=== PATIENT | female | born 1980 ===

== ENCOUNTER 2016-12-26 05:21 | Inpatient (IN) | payer MEDICAID ==
[2016-12-26 05:55] VITALS: BMI 29.2
[2016-12-26] MEDS ORDERED: cefOXitin IV 2 gm in Dextrose 50 ML IVPB ONE ×2 (05:57→07:25)
[2016-12-26] MEDS ORDERED: Sodium Citrate/Citric Acid 15 ml Sol PO ONE (05:57)
[2016-12-26 07:24] LABS: GFR AFRICAN-AMERICAN > 60; GLUCOSE,RANDOM 72 mg/dL (65-105)
[2016-12-26] MEDS ORDERED: Sodium Citrate/Citric Acid 15 ml Sol ONE (07:25)
[2016-12-26] MEDS ORDERED: Oxytocin 20 units in LR 2,000 ML IV ONE (07:26)
[2016-12-26 07:27] LABS: BASO % 0.4 % (0.0-2.0); EOS % 0.6 % (0.0-4.0); HEMATOCRIT 35.2 % (34.0-47.0); LYMPH # 1.4 K/uL (1.0-4.3); LYMPH % 18.5 % (20.0-40.0); MEAN CELL VOLUME 94.2 fL (81.0-99.0); MEAN CORPUSCULAR HEMOGLOBIN 31.4 pg (27.0-31.0); MEAN CORPUSCULAR HGB CONC 33.4 g/dL (33.0-37.0); MEAN PLATELET VOLUME 9.9 fL (7.2-11.7); MONO # 0.4 K/uL (0.0-0.8); MONO % 5.7 % (0.0-10.0); NRBC % 0.1 % (0.0-2.0); RED CELL DISTRIBUTION WIDTH 15.4 % (11.5-14.5); URINE BILIRUBIN NEGATIVE (NEGATIVE); URINE BLOOD NEGATIVE (NEGATIVE); URINE COLOR Straw (YELLOW); URINE GLUCOSE (UA) NORMAL (Normal); URINE KETONE NEGATIVE (NEGATIVE); URINE LEUKOCYTE ESTERASE NEG Leu/uL (Negative); URINE PROTEIN NEGATIVE (NEGATIVE); URINE UROBILINOGEN NORMAL mg/dL (0.2-1.0); WBC URINE < 1 /hpf (0-5); WHITE BLOOD COUNT 7.8 K/uL (4.8-10.8)
[2016-12-26] MEDS ORDERED: Morphine 1 mg/ml preservative-free Inj(Duramorph) ONE (07:55)
[2016-12-26] MEDS: Lactated Ringer's 1,000 ML IV SCH ×2 (08:00→22:08)
--- NOTE | 2016-12-26 08:04 | OBADHP ---
Datetime: 12/26/2016 07:43 IP Chief Complaint Other: Advanced maternal age; Previous section; Anemia Admit Comment, IP Provider: 36 yo , LMP unsure, NICOLETTE 12/31/16, EGA 39w 2d by sono 06/21/16 at 12 w 3d - scheduled repeat section with bilateral tubal ligation. (+) AFM; denies LOF, VB; occ Ctx. issues: [facility] - 1) advanced maternal age - declined amniocentesis. 2) anemia onp.o. med s; 3) multiparity, desires permanent sterilization - consent signed 10/27/16. P Ob: x 2000, female, 8lb, [place], no complications. 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 Denies STIs or abnormal Pap PMH: Acid reflux PSH: Age 29, tonsillectomy; D_C; C/S NKDA Meds: PNV, iron - each QD Soc Hx: denies tobacco, illiicit drug or EtOH use. With FOB x 14 years Fam Hx: Mother alive 68. Father alive 68 - both no med issues P.E.: as above. WD in NAD. Awake, alert, oriented to time, person and place. Pleasant and cooperat suzette. FOB present Assessment: 36 yo P2012, 39wk 2d prev C/S x 1 for elective repeat C/S with BTL. Reaffirmation perf ormed for permanent sterilization. Consents for surgery and blood transfusion also obatined after dis cussion of R/B/C. No questions offered; same signed, dated, witnessed and placed in chart. Patient la st ate 2000 hours. Category 1 tracing. Patient is clinically stable. 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 Pelvic Type - PN: Adequate Extremities - PN: Normal Abdomen - PN: Normal Back - PN: Normal Breast - PN: Not Done Lungs - PN: Normal Heart - PN: Normal Thyroid - PN: Not Done Neurologic - PN: Normal HEENT - PN: Normal General - PN: Normal FHR - Baseline A Provider: 145 Membranes, Provider: Intact Contraction Comments Provider: 6 Comments, ACOG Physical Exam: Skin: warm, dry, intact HEENT: full ROM Lungs: CTA bilaterally Cardiac: RRR, normal S1, S2 Abdomen: Gravid Soft. non tender. Healed Pfannenstiel scar. Fundal height 40cm : no masses or discharge Extremities: no calf tenderness, cyanosis or edema All other systems reviewed and are negative Gestation - Est Wks by US: 39w 2d IP Hx Assessment: The History has been Reviewed and is Current Vital Signs Provider: Reviewed IP Chief Complaint: Scheduled Section NICHD Variability Prov Fetus A: Moderate 6-25bpm NICHD Accel Fetus A IP Provider: 15X15 FHR Category Provider Fetus A: Category I NICHD Decel Fetus A IP Provider: None Dilatation, Provider: 1 Effacement, Provider: 0 Station, Provider: -3 Genitourinary Exam: Normal DTRs - PN: Not Done EGA AdmitDate IP: 39.6 IP Adm Impression: Term, intrauterine ; No Active Labor IP Admit Plan: Admit to unit; Initiate Section protocol
[2016-12-26] MEDS ORDERED: ePHEDrine 50 mg/ml Inj ONE (08:15)
[2016-12-26] MEDS ORDERED: Midazolam 2 MG/2 ML VIAL ONE (08:48)
--- NOTE | 2016-12-26 12:43 | PCM.SURG1 ---
Surgeon's Initial Post Op Note - Surgeon's Notes Surgeon: Daisy Bassett MD Animal Caretaker Supervisor: Clemente Farias MD. 2nd Animal Caretaker Supervisor: Delmi Ny MS-4 Type of Anesthesia: Spinal Anesthesia Administered By: Dr. Alberto Pre-Operative Diagnosis: Advanced maternal age; 39 weeks gestation; Previous section; Anemia; desires permanent sterilization. Operative Findings: Live male , weight 8lb 1oz; DAVID position; Apgars 9/9. Normal uterus; normal fallopian tubes and ovaries, bilaterally Post-Operative Diagnosis: Same; S/P repeat LTCS and bilateral tubal ligation Operation Performed: Repeat transverse lower uterine segment section; modified [place] procedure Specimen/Specimens Removed: Segment of right and left fallopian tubes Estimated Blood Loss: EBL {In ML}: 800 (U.O. 1,000 cc, clear. IVFs 2250 cc LR ) Blood Products Given: N/A Drains Used: No Drains Post-Op Condition: Good Date of Surgery/Procedure: 12/26/16 Time of Surgery/Procedure: 11:00
--- NOTE | 2016-12-26 13:29 | OBDS ---
DELIVERY PERSONNEL Delivery Doctor: Dwaine Bassett MD Scrub Nurse: Ethel Loyd Collection Systems Modeler: Yoni Verduzco RN Anesthesiologist: Toby Farr MD MATERNAL INFORMATION Delivery Anesthesia: Spinal Medications in Delivery: pit Estimated Blood Loss (ml): 800 Placenta Cultured: No Maternal Complications: None Provider Comments: Uncomplicated repeat lower transverse section performed with modified [place] procedure for permanent sterilization. Atraumatic delivery of live male , Apgars 9/9; heri ght 8lb 1oz, DAVID position. Patient tolerated procedure well. To PACU in stable condition. LABOR SUMMARY EDC: 12/27/2016 00:00 No. Babies in Womb: 1 Attempted: No Labor Anesthesia: None LABOR INFORMATION Other Ripening Agents: n/a Oxytocin: N/A Steroids Given: None Reason Steroids Not Administered: Not Applicable MEMBRANES Membranes Rupture Method: Artificial Rupture of Membranes: 12/26/2016 08:44 Length of Rupture (hrs): 0.00 Amniotic Fluid Color: Clear Amniotic Fluid Amount: Moderate Amniotic Fluid Odor: Normal STAGES OF LABOR Stage 3 hrs: 0 Stage 3 min: 1 CSECTION DELIVERY Primary Indication: Repeat Elective Secondary Indication: N/A Other Secondary Indication: Desires permanent sterilization CSection Urgency: Elective CSection Incidence: Repeat Labor: No Labor Elective: Elective CSection Incision: Lower Uterine Transverse Sterilization Procedure: [place] Uterine Closure: Double-layer closure BABY A INFORMATION Delivery Date/Time: 12/26/2016 08:44 Method of Delivery: Born in Route : No : N/A Forceps: N/A Vacuum Extraction: N/A Shoulder Dystocia : No SHOULDER DYSTOCIA BABY A Delivery Date/Time: 12/26/2016 08:44 PRESENTATION/POSITION BABY A Presentation: Cephalic Cephalic Presentation: Vertex Vertex Position: Right Occipital Anterior Breech Presentation: N/A PLACENTA INFORMATION BABY A Placenta Delivery Time : 12/26/2016 08:45 Placenta Method of Delivery: Manual Removal Placenta Status: Delivered SCORES BABY A Heart Rate 1 min: >100 bpm Resp Effort 1 min: Good Cry Reflex Irritability 1 min: Cough or Sneeze or Pulls Away Muscle Tone 1 min: Active Motion Color 1 min: Body [place], Extremities Blue SCORE 1 MIN: 9 Heart Rate 5 min: >100 bpm Resp Effort 5 min: Good Cry Reflex Irritability 5 min: Cough or Sneeze or Pulls Away Muscle Tone 5 min: Active Motion Color 5 min: Body [place], Extremities Blue SCORE 5 MIN: 9 INFORMATION BABY A Gestational Age at Delivery: 39.6 Gestational Status: Term Outcome : Liveborn Infant Condition : Stable Infant Sex: Male IDENTIFICATION/MEDS BABY A ID Band Number: [id number] ID Band Location: Left Leg; Left Arm Sensor Applied: Yes Sensor Number: [id number] Sensor Location : Cord Clamp Vitamin K Given : Not Given Erythromycin Given: Not Given WEIGHT/LENGTH BABY A Infant Birthweight (gms): 3655 Infant Weight (lb): 8 Weight (oz): 1 Length Inches: 20.00 Infant Length cms: 50.8 CORD INFORMATION BABY A No. Cord Vessels: 3 Nuchal Cord : N/A Cord Blood Taken: Yes Suction: Mouth; Nose ASSESSMENT BABY A Infant Complications: None Physical Findings at Delivery: Within Normal Limits Respirations: Appears Normal Deep Fat Fry Cook/ALS Called : Yes Care By: dr. aranda/charisma rn Transferred To: Remains with Mother
--- NOTE | 2016-12-26 14:55 | OP ---
PROCEDURE DATE: 12/26/2016 SURGEON: Daisy Bassett MD PLASTIC TOOL MAKER: Clemente Farias MD SECOND PLASTIC TOOL MAKER: Delmi Ny MS-4 ANESTHESIA: Spinal. ANESTHESIOLOGIST: Dr. Keturah Alberto PREOPERATIVE DIAGNOSES: A 39 weeks gestation, previous Caesarean section, multiparity, desiring permanent sterilization, advanced maternal age, with anemia. POSTOPERATIVE DIAGNOSES: A 39 weeks gestation, previous Caesarean section, multiparity, desiring permanent sterilization, advanced maternal age, with anemia, status post repeat low transverse Caesarean section and bilateral tubal ligation. OPERATIVE FINDINGS: Live male infant from the right occiput anterior position. Weight 8 pounds 1 ounce. Apgars 9 and 9 at 1 and 5 minutes, respectively. Normal uterus; normal fallopian tubes and ovaries, bilaterally. OPERATION PERFORMED: Repeat transverse lower uterine segment Caesarean section and a modified [place] procedure. SPECIMENS: Portion of right and left fallopian tubes. ESTIMATED BLOOD LOSS: 800 mL. URINARY OUTPUT: 1000 mL of clear urine. INTRAVENOUS FLUIDS: 2250 mL of lactated Ringer's. BLOOD PRODUCTS GIVEN: None. COMPLICATIONS: None. PROCEDURE: The patient was taken to the operating room after having obtained informed consent for the anticipated procedure. Consent was obtained in 2 forms : first, a reaffirmation of her desire for permanent sterilization, with the understanding of a risk of failure of about 1-3 per 1000. The patient was also counseled for risks, benefits and complications of repeat Caesarean section including, but not limited to, infection requiring antibiotics, hemorrhage requiring blood transfusion, repair of any damage to internal organs, possible Caesarean hysterectomy. The patient expressed an understanding. All her questions were answered. Consents were signed, dated, witnessed and placed in the chart. In LDR room 1, patient received Mefoxin 2 grams and she was then escorted to the operating room. Once in the operating room, on the operating room table in a sitting position, spinal anesthesia was administered without incident. She was immediately positioned in the supine position. Auscultation of heart rate was at 140 beats per minute. A Valerio catheter was then placed under sterile conditions. The patient's abdomen was prepped and she was subsequently draped in the usual sterile fashion. After assuring an adequate level of anesthesia, using the first scalpel, a Pfannenstiel incision was made on the skin just inferior to the previous scar. The incision was carried down through the subcutaneous tissue using the Bovie electrocautery. The fascia was identified. It was nicked in the midline and the incision was extended bilaterally also using the Bovie electrocautery. The rectus muscle was then dissected off the overlying fascia and the peritoneum was entered via blunt dissection. The vesicouterine reflection was identified and the bladder flap was created. A transverse incision was then made on the lower uterine segment. Amniotomy was performed and a copious amount of clear fluid was noted. Atraumatic delivery of a live male infant, findings as above, ensued without incident. Once on the operative field, the 's mouth and nose were bulb suctioned as the umbilical cord was doubly clamped and cut. The was then handed off the operative field to the pediatricians in attendance. The placenta was delivered manually. It was grossly intact with 3 vessels present in the cord. The uterus was exteriorized for closure. This was done in 2 layers using 1-0 Vicryl. The first layer was in a running interlocking fashion and the second layer was in a horizontal imbricating fashion. Additional hemostatic sutures were needed on the lower uterine segment. This was with O Biosyn 0 in a running interlocking fashion. Attention was then directed to the pelvic viscera, which were grossly normal as reported above. Using a Piyush clamp, the right fallopian tube was grasped in the midisthmic portion that was relatively avascular. A knuckle was created using plain catgut in 2 ties. The intervening mesosalpinx was pierced and the portion of the fallopian tube was resected and submitted to pathology for confirmation. Hemostasis was assured on the ligated ends. A similar procedure was performed on the left fallopian tube. Attention was then directed to the posterior aspect of the uterus. Copious irrigation was performed. The bladder flap was reapproximated using 2-0 chromic in a running fashion. The uterus was returned to the abdominal cavity. The paracolic gutters were cleared of all debris. After assuring adequate hemostasis, the parietal peritoneum was reapproximated using 2-0 chromic in a running fashion. And the rectus muscle was reapproximated in the midline using 3-0 chromic in a running fashion. The fascia was reapproximated using 1-0 Vicryl in a running fashion in a single suture and the subcutaneous tissue was reapproximated using O plain catgut in a running fashion. The skin was reapproximated using surgical clips. Bimanual examination was performed and the uterus was evacuated of clots. It was contracted and firm, noted to be about 2 fingerbreadths below the umbilicus. A pressure dressing was applied. The patient tolerated the procedure well. She was transferred to the PACU in stable condition. Infant had been transferred to the well-baby nursery, also in stable condition. Dr. Farias was present throughout the entire procedure as a certified ophthalmic surgical assistant. His presence was necessary for: 1. Adequate visualization of the operative field at all times. 2. Applying sufficient fundal pressure for the safe and atraumatic delivery of the infant. 3. Assuring adequate hemostasis throughout the procedure. Daisy A Serjio COOK cc: [id number] TT: 12/26/2016 14:55:15 en MTDD
[2016-12-26] MEDS: Simethicone 80 mg Chewtab PO SCH (22:09)
[2016-12-27] MEDS: Oxycodone/Acetaminophen 5/325 mg Tab PO PRN ×3 (05:17→16:25)
[2016-12-27] MEDS: Lactated Ringer's 1,000 ML IV SCH (06:00)
[2016-12-27 08:01] LABS: BASO % 0.2 % (0.0-2.0); EOS % 0.3 % (0.0-4.0); HEMATOCRIT 30.2 % (34.0-47.0); LYMPH # 1.1 K/uL (1.0-4.3); LYMPH % 8.8 % (20.0-40.0); MEAN CELL VOLUME 93.8 fL (81.0-99.0); MEAN CORPUSCULAR HEMOGLOBIN 31.4 pg (27.0-31.0); MEAN CORPUSCULAR HGB CONC 33.4 g/dL (33.0-37.0); MEAN PLATELET VOLUME 9.4 fL (7.2-11.7); MONO # 0.6 K/uL (0.0-0.8); PLATELET COUNT 152 K/uL (130-400); RED CELL DISTRIBUTION WIDTH 16.2 % (11.5-14.5); WHITE BLOOD COUNT 12.4 K/uL (4.8-10.8)
[2016-12-27 08:58] LABS: NEUTROPHIL 78 % (50-75); TOTAL CELLS COUNTED 100
--- NOTE | 2016-12-27 09:08 | OBPPN ---
Datetime: 12/27/2016 09:06 PP Pain Prov: Within normal limits PP Nausea Prov: Denies PP Flatus Prov: Yes PP BM Prov: No PP Breasts Prov: Normal PP Heart Prov: Normal PP Lungs Prov: Normal PP Abdomen/Uterus Prov: Normal PP Lochia Prov: Normal PP Vulva/Perineum Prov: Normal PP CVA Tenderness Prov: Normal PP Extremities Prov: Normal PP C/S Incision Prov: Normal PP Progress Prov: Normal PP Impression Prov: Normal progression PP Plan Prov: Continue present management PP Progress Note Prov: S-patient reports that he rpain is well controlled.denies nausea, vomiting, h eadache, chest pain, shortness of breath, numbness or tingling in hands and feet O-VSS Afebrile Fundus firm and below umbilcius dressing clean dry and intact extremities no calf tenderness A/P Patient s/p csection pod 1 doing well -continue roitine post op care -advance diet -monitor closely Vital Signs Provider PP: Reviewed; Within Normal Limits
[2016-12-27] MEDS: Prenatal Multivit/Folic Acid/Iron Tab PO SCH (09:47)
[2016-12-27] MEDS: Simethicone 80 mg Chewtab PO SCH ×4 (09:47→22:13)
--- NOTE | 2016-12-28 07:27 | OBPPN ---
Datetime: 12/28/2016 07:25 PP Pain Prov: Within normal limits PP Nausea Prov: Denies PP Flatus Prov: Yes PP Abdomen/Uterus Prov: Normal PP Lochia Prov: Normal PP Extremities Prov: Normal PP C/S Incision Prov: Normal PP Comments Phys Exam Prov: fudus below umblicus ext no edema,no calf ten incision clean and dry PP Impression Prov: Normal progression PP Plan Prov: Continue present management PP Progress Note Prov: pt was seen at bed side, pain under control, no n/v, tolerating deit, voiding ,min lochia, flatus+ pod#2 s/p c/s cont post care cont pain management encourage ambulation Vital Signs Provider PP: Reviewed; Within Normal Limits
[2016-12-28] MEDS: Prenatal Multivit/Folic Acid/Iron Tab PO SCH (10:37)
[2016-12-28] MEDS: Simethicone 80 mg Chewtab PO SCH ×4 (10:37→22:45)
[2016-12-28 16:51] VITALS: O2SAT 99
[2016-12-29 07:59] VITALS: BP 105/72; PULSE 85; RESP 18; TEMP 98.6
--- NOTE | 2016-12-29 08:59 | OBPPN ---
Datetime: 12/29/2016 08:55 PP Pain Prov: Within normal limits PP Nausea Prov: Denies PP Flatus Prov: Yes PP BM Prov: Yes PP Breasts Prov: Normal PP Heart Prov: Normal PP Lungs Prov: Normal PP Abdomen/Uterus Prov: Normal PP Lochia Prov: Normal PP Vulva/Perineum Prov: Normal PP CVA Tenderness Prov: Normal PP Extremities Prov: Normal PP C/S Incision Prov: Normal PP Progress Prov: Normal PP Comments Phys Exam Prov: Abdomen soft, non-tender. Incision C/D/I. Good bowel soungs PP Impression Prov: Normal progression PP Plan Prov: Discharge PP Progress Note Prov: Stable. Discharge home. Clinic follow up 1 week. IP PP Procedures: None Vital Signs Provider PP: Reviewed; Within Normal Limits Vital Signs Provider Details PP: HgB 10.1
--- NOTE | 2016-12-29 09:01 | OBDCSUM ---
Datetime: 12/29/2016 08:56 Discharged to, Provider: Home Follow up at, Provider: GILLIAN Disch Instr Activity: Normal activity; May Shower Disch Instr Diet: Restricted, specify Discharge Diet restrict Prov: none Discharge Diagnosis, Provider: Term Delivered Discharge Time: 12/29/2016 08:59 Disch Referrals: None Contraception discussed, Prov: Yes Disch Activity Restrictions: No exercising; No lifting; No driving; Minimize walking; Minimize stair -climbing; No sexual activity; Nothing in vagina - [place], tampons, douche Discharge Comment, Provider: Repeat Delivery with BTL, uncomplicated. Discharge Diagnosis Prov Other: Repeat LTC/S Contraception after Delivery: Tubal Ligation
[2016-12-29] MEDS ORDERED: Influenza Virus Vaccine 45 mcg/0.5 ml Syr IM ONE (09:12)
[2016-12-29] MEDS: Simethicone 80 mg Chewtab PO SCH (10:15)
[2016-12-29] MEDS: Prenatal Multivit/Folic Acid/Iron Tab PO SCH (10:15)
== END 2016-12-29 11:30 | disposition home or self-care (01) ==
LOC: C.4D 05:21 → C.4M 12:25
PROVIDERS: ADMIT Obstetrics & Gynecology; ATTEND Obstetrics & Gynecology
PROC: 10D00Z1 Extraction of Products of Conception, Low, Open Approach (ICD-10-PCS; principal; 2016-12-26)
PROC: 0UT70ZZ Resection of Bilateral Fallopian Tubes, Open Approach (ICD-10-PCS; 2016-12-26)
DX: O34.211 Maternal care for low transverse scar from previous cesarean delivery (principal); D64.9 Anemia, unspecified; O99.013 Anemia complicating pregnancy, third trimester; Z37.0 Single live birth; O09.523 Supervision of elderly multigravida, third trimester; Z3A.39 39 weeks gestation of pregnancy; Z30.2 Encounter for sterilization

== ENCOUNTER 2018-01-14 18:36 | Emergency (ER) | payer SELFPAY ==
[2018-01-14 18:37] VITALS: BMI 29.2
[2018-01-14 18:55] VITALS: RESP 20; O2SAT 100
[2018-01-14] MEDS ORDERED: Aluminum Hydroxide/Magnesium Hydroxide Susp (30 mL) PO STA (19:24)
[2018-01-14] MEDS ORDERED: Belladonna-Phenobarbital PO STA (19:25)
--- NOTE | 2018-01-14 19:26 | C.PDOC ---
History Of Present Illness 37 year old female with PMhx of GERD presents to the ED c/o abdominal pain associated with nausea for the past week. Patient she has had similar pain in the past but now its worse. Patient also c/o constipation, burning sensation while urinating. Patient denies fever, chills, vomit, diarrhea, CP, SOB. Chief Complaint (Nursing): Abdominal Pain History Per: Patient History/Exam Limitations: no limitations Onset/Duration Of Symptoms: Days Current Symptoms Are (Timing): Still Present Location Of Pain/Discomfort: Diffuse Radiation Of Pain To:: Back Quality Of Discomfort: "Pain" Associated Symptoms: Nausea, Constipation, Urinary Symptoms Last Bowel Movement: Today Recent travel outside of the [place]: No Additional History Per: Patient Abnormal Vaginal Bleeding: No Past Medical History Reviewed: Historical Data, Nursing Documentation, Vital Signs Vital Signs: Last Vital Signs Temp 98.2 F 01/14/18 20:58 Pulse 67 01/14/18 20:58 Resp 20 01/14/18 20:58 BP 105/70 01/14/18 20:58 Pulse Ox 100 01/14/18 21:43 - Medical History PMH: GERD Surgical History: Tonsillectomy - [facility] Procedures EXTRACTION OF POC, LOW CERVICAL, OPEN APPROACH (12/26/16) RESECTION OF BILATERAL FALLOPIAN TUBES, OPEN APPROACH (12/26/16) Family History: States: Unknown Family Hx - Social History Hx Tobacco Use: No Hx Alcohol Use: No Hx Substance Use: No - Immunization History Hx Tetanus Toxoid Vaccination: No Hx Influenza Vaccination: No Hx Pneumococcal Vaccination: No Review Of Systems Constitutional: Negative for: Fever, Chills Cardiovascular: Negative for: Chest Pain Respiratory: Negative for: Shortness of Breath Gastrointestinal: Positive for: Nausea, Abdominal Pain, Constipation Genitourinary: Positive for: Dysuria Musculoskeletal: Positive for: Back Pain Skin: Negative for: Rash Neurological: Negative for: Headache, Dizziness Physical Exam - Physical Exam Appears: Non-toxic, No Acute Distress Skin: Normal Color, Warm, Dry Head: Atraumatic, Normacephalic Eye(s): bilateral: Normal Inspection Nose: No Discharge Oral Mucosa: Moist Throat: Normal, No Erythema, No Exudate Neck: Normal ROM, Supple Chest: Symmetrical Cardiovascular: Rhythm Regular, No Murmur Respiratory: Normal Breath Sounds, No Rales, No Rhonchi, No Wheezing Gastrointestinal/Abdominal: Bowel Sounds (active), Soft, Tenderness (mild LUQ, lower abdominal), No Guarding, No Rebound Extremity: Normal ROM, No Tenderness, No Swelling Pulses: Left Dorsalis Pedis: Normal, Right Dorsalis Pedis: Normal Neurological/Psych: Oriented x3, Normal Motor, Normal Sensation Gait: Steady ED Course And Treatment - Laboratory Results Result Diagrams: 01/14/18 19:35 01/14/18 19:35 O2 Sat by Pulse Oximetry: 100 (ON RA) Pulse Ox Interpretation: Normal Medical Decision Making Medical Decision Making: Impression: abdominal pain Plan: * Labs * Maalox 30 ml PO * Zofran 4 mg IVP * Lidocaine 2% 15 ml PO * 1 tab PO * UA On reassessment, patient is resting comfortably, and is in no acute distress. Patient was instructed to follow up with physician/clinic in 1-2 days for further evaluation. Disposition - Disposition Referrals: [facility] at [facility] [Outside] Disposition: HOME/ ROUTINE Disposition Time: 22:35 Condition: FAIR Prescriptions: Pantoprazole [Protonix] 40 mg PO DAILY #14 ect Instructions: Acid Reflux (Gastroesophageal Reflux Disease), Adult (DC), Acute Abdomen (Belly Pain) Forms: Gen Discharge Inst Libyan, [employer] [place] [employer] (Swiss) Print Language: BURMESE - Clinical Impression Clinical Impression: Abdominal pain - Scribe Statement The provider has reviewed the documentation as recorded by the Scribe Andrew Andrade All medical record entries made by the Scribe were at my direction and personally dictated by me. I have reviewed the chart and agree that the record accurately reflects my personal performance of the history, physical exam, medical decision making, and the department course for this patient. I have also personally directed, reviewed, and agree with the discharge instructions and disposition.
[2018-01-14] MEDS ORDERED: Belladonna-Phenobarbital ONE (19:42)
[2018-01-14 19:43] LABS: BASO # 0.1 K/uL (0.0-0.2); BASO % 0.8 % (0.0-2.0); EOS # 0.1 K/uL (0.0-0.7); EOS % 2.2 % (0.0-4.0); LYMPH # 2.1 K/uL (1.0-4.3); LYMPH % 32.3 % (20.0-40.0); MEAN CORPUSCULAR HEMOGLOBIN 31.3 pg (27.0-31.0); MEAN CORPUSCULAR HGB CONC 33.8 g/dL (33.0-37.0); MEAN PLATELET VOLUME 9.4 fL (7.2-11.7); MONO # 0.6 K/uL (0.0-0.8); MONO % 8.5 % (0.0-10.0); NEUT # 3.7 K/uL (1.8-7.0); NEUT % 56.2 % (50.0-75.0); RBC 3.87 Mil/uL (3.80-5.20); RED CELL DISTRIBUTION WIDTH 13.6 % (11.5-14.5); WHITE BLOOD COUNT 6.5 K/uL (4.8-10.8)
[2018-01-14] MEDS ORDERED: Aluminum Hydroxide/Magnesium Hydroxide Susp (30 mL) ONE (19:43)
[2018-01-14 19:44] LABS: HEMOGLOBIN 12.1 g/dL (11.0-16.0); MEAN CELL VOLUME 92.7 fL (81.0-99.0)
[2018-01-14 19:52] LABS: ALB/GLOB RATIO 1.2 (1.0-2.1); ALT/SGPT 21 U/L (9-52); AST/SGOT 28 U/L (14-36); BLOOD UREA NITROGEN 12 mg/dL (7-17); CALCIUM 8.7 mg/dl (8.6-10.4); GFR AFRICAN-AMERICAN > 60; GFR NON-AFRICAN AMERICAN > 60; LIPASE 145 U/L (23-300)
[2018-01-14 20:54] LABS: HCG,QUALITATIVE URINE NEGATIVE (NEGATIVE)
[2018-01-14 20:59] VITALS: BP 105/70; PULSE 67; TEMP 98.2
[2018-01-14 20:59] LABS: SQUAMOUS EPITHIAL 2 /hpf (0-5); URINE BILIRUBIN NEGATIVE (NEGATIVE); URINE BLOOD NEGATIVE (NEGATIVE); URINE CLARITY Clear (Clear); URINE COLOR Yellow (YELLOW); URINE GLUCOSE (UA) NORMAL (Normal); URINE LEUKOCYTE ESTERASE NEG Leu/uL (Negative); URINE PROTEIN NEGATIVE (NEGATIVE); URINE UROBILINOGEN NORMAL mg/dL (0.2-1.0)
== END 2018-01-14 20:58 | disposition home or self-care (01) ==
LOC: C.ER 18:36
DX: R10.9 Unspecified abdominal pain (principal); K21.9 Gastro-esophageal reflux disease without esophagitis
CPT/HCPCS: 80053; 81001; 83690; 84703; 85025; 96374; 99284; J2405

== ENCOUNTER 2018-05-04 22:02 | Emergency (ER) | payer SELFPAY ==
[2018-05-04 22:02] VITALS: BMI 29.2
[2018-05-04 22:35] VITALS: BP 113/73; PULSE 70; TEMP 97.8; O2SAT 100
[2018-05-04 22:43] LABS: SQUAMOUS EPITHIAL 7 /hpf (0-5); URINE BACTERIA OCC (<OCC); URINE BILIRUBIN NEGATIVE (NEGATIVE); URINE BLOOD NEGATIVE (NEGATIVE); URINE CLARITY Clear (Clear); URINE COLOR Yellow (YELLOW); URINE GLUCOSE (UA) NORMAL (Normal); URINE LEUKOCYTE ESTERASE 1+ Leu/uL (Negative); URINE PROTEIN NEGATIVE (NEGATIVE); URINE UROBILINOGEN NORMAL mg/dL (0.2-1.0)
--- NOTE | 2018-05-04 23:16 | C.PDOC ---
History Of Present Illness 37 year old female presents to the ER with a complaint of dysuria for the past 6 days, associated with back pain and chills. Denies fever. Time Seen by Provider: 05/04/18 22:58 Chief Complaint (Nursing): Female Genitourinary History Per: Patient History/Exam Limitations: no limitations Current Symptoms Are (Timing): Still Present Quality Of Discomfort: Burning Associated Symptoms: Chills, Back Pain, Urinary Symptoms (Dysuria). denies: Fever Alleviating Factors: None Recent travel outside of the [place]: No Abnormal Vaginal Bleeding: No Past Medical History Reviewed: Historical Data, Nursing Documentation, Vital Signs Vital Signs: Last Vital Signs Temp 97.8 F 05/04/18 22:33 Pulse 70 05/04/18 22:33 Resp 20 05/04/18 23:25 BP 113/73 05/04/18 22:33 Pulse Ox 100 05/04/18 23:16 - Medical History PMH: GERD Surgical History: Tonsillectomy - [facility] Procedures EXTRACTION OF POC, LOW CERVICAL, OPEN APPROACH (12/26/16) RESECTION OF BILATERAL FALLOPIAN TUBES, OPEN APPROACH (12/26/16) Family History: States: Unknown Family Hx - Social History Hx Tobacco Use: No Hx Alcohol Use: No Hx Substance Use: No - Immunization History Hx Tetanus Toxoid Vaccination: No Hx Influenza Vaccination: No Hx Pneumococcal Vaccination: No Review Of Systems Constitutional: Positive for: Chills. Negative for: Fever Gastrointestinal: Negative for: Nausea, Vomiting, Abdominal Pain Genitourinary: Positive for: Dysuria Musculoskeletal: Positive for: Back Pain Physical Exam - Physical Exam Appears: Non-toxic Skin: Normal Color, Warm, Dry Head: Atraumatic, Normacephalic Eye(s): bilateral: Normal Inspection Oral Mucosa: Moist Chest: Symmetrical, No Tenderness Cardiovascular: Rhythm Regular Respiratory: Normal Breath Sounds, No Rales, No Rhonchi, No Wheezing Gastrointestinal/Abdominal: Soft, No Tenderness Back: No CVA Tenderness Neurological/Psych: Oriented x3, Normal Speech Gait: Steady ED Course And Treatment O2 Sat by Pulse Oximetry: 100 (Room air) Pulse Ox Interpretation: Normal Medical Decision Making Medical Decision Making: Urinalysis was positive for UTI, will discharge home on cipro and pyridium, patient advised to follow up with PMD for further evaluation or return if symptoms worsen. Disposition - Disposition Referrals: [facility] at [facility] [Outside] Disposition: HOME/ ROUTINE Disposition Time: 23:14 Condition: FAIR Additional Instructions: Follow up with the medical doctor/clinic within 1-2 days. Return if worsened. Prescriptions: Ciprofloxacin [Cipro] 1 tab PO BID #14 tab Phenazopyridine HCl [Pyridium] 200 mg PO TID #10 tablet Instructions: Urinary Tract Infections in Adults Forms: [employer] (Wolof) - Clinical Impression Clinical Impression: UTI (urinary tract infection) during - PA / AUTOMATIC RIVETING MACHINE OPERATOR / Resident Statement MD/DO has reviewed & agrees with the documentation as recorded. - Scribe Statement The provider has reviewed the documentation as recorded by the Scribe Landon Jackson All medical record entries made by the Heshamibtanesha were at my direction and personally dictated by me. I have reviewed the chart and agree that the record accurately reflects my personal performance of the history, physical exam, medical decision making, and the department course for this patient. I have also personally directed, reviewed, and agree with the discharge instructions and disposition.
[2018-05-04 23:25] VITALS: RESP 20
== END 2018-05-04 23:25 | disposition home or self-care (01) ==
LOC: C.ER 22:02
DX: O23.40 Unspecified infection of urinary tract in pregnancy, unspecified trimester (principal); Z3A.00 Weeks of gestation of pregnancy not specified

== ENCOUNTER 2018-06-26 07:09 | Emergency (ER) | payer OTHER ==
[2018-06-26 07:09] VITALS: BMI 29.2
[2018-06-26 07:24] VITALS: TEMP 98.1
[2018-06-26] MEDS ORDERED: DiphenhydrAMINE 50 mg/ml Inj IVP STA (08:20)
[2018-06-26] MEDS ORDERED: Sodium Chloride 0.9% 1,000 ML IV ONE (08:20)
[2018-06-26 08:21] LABS: SQUAMOUS EPITHIAL 1 /hpf (0-5); URINE BACTERIA RARE (<OCC); URINE BILIRUBIN NEGATIVE (NEGATIVE); URINE BLOOD NEGATIVE (NEGATIVE); URINE CLARITY Clear (Clear); URINE COLOR Yellow (YELLOW); URINE GLUCOSE (UA) NORMAL (Normal); URINE LEUKOCYTE ESTERASE NEG Leu/uL (Negative); URINE PROTEIN NEGATIVE (NEGATIVE); URINE UROBILINOGEN NORMAL mg/dL (0.2-1.0)
[2018-06-26 08:50] LABS: BASO % 0.7 % (0.0-2.0); EOS % 1.4 % (0.0-4.0); HEMOGLOBIN 12.1 g/dL (11.0-16.0); LYMPH # 1.3 K/uL (1.0-4.3); LYMPH % 34.5 % (20.0-40.0); MEAN CELL VOLUME 91.3 fL (81.0-99.0); MEAN CORPUSCULAR HEMOGLOBIN 30.4 pg (27.0-31.0); MEAN CORPUSCULAR HGB CONC 33.3 g/dL (33.0-37.0); MEAN PLATELET VOLUME 9.4 fL (7.2-11.7); MONO # 0.4 K/uL (0.0-0.8); MONO % 10.7 % (0.0-10.0); NEUT # 1.9 K/uL (1.8-7.0); NEUT % 52.7 % (50.0-75.0); NRBC % 0.1 % (0.0-2.0); RBC 3.98 Mil/uL (3.80-5.20); RED CELL DISTRIBUTION WIDTH 13.3 % (11.5-14.5); WHITE BLOOD COUNT 3.6 K/uL (4.8-10.8)
[2018-06-26] MEDS ORDERED: Sodium Chloride 0.9% 1,000 ML ONE (09:00)
[2018-06-26 09:02] LABS: ALB/GLOB RATIO 1.5 (1.0-2.1); ALBUMIN 4.2 g/dL (3.5-5.0); ALT/SGPT 29 U/L (9-52); AST/SGOT 23 U/L (14-36); BLOOD UREA NITROGEN 9 mg/dL (7-17); CALCIUM 8.9 mg/dl (8.6-10.4); GFR NON-AFRICAN AMERICAN > 60; LIPASE 60 U/L (23-300)
[2018-06-26 09:18] LABS: HCG,QUALITATIVE URINE NEGATIVE (NEGATIVE)
--- NOTE | 2018-06-26 10:30 | C.PDOC ---
History Of Present Illness 37 y/o female presents to ED with c/o dizziness associated with nausea and dysuria. Patient reports symptoms are worse with movement and denies headache, chest pain, sob, visual changes or any other complaints at this time. Time Seen by Provider: 06/26/18 07:42 Chief Complaint (Nursing): Flu-like Symptoms History Per: Patient History/Exam Limitations: no limitations Onset/Duration Of Symptoms: Days Current Symptoms Are (Timing): Still Present Past Medical History Reviewed: Historical Data, Nursing Documentation, Vital Signs Vital Signs: Last Vital Signs Temp 98.1 F 06/26/18 12:42 Pulse 66 06/26/18 12:42 Resp 17 06/26/18 12:42 BP 105/70 06/26/18 12:42 Pulse Ox 100 06/26/18 12:42 - Medical History PMH: GERD Surgical History: Tonsillectomy - [facility] EXTRACTION OF POC, LOW CERVICAL, OPEN APPROACH (12/26/16) RESECTION OF BILATERAL FALLOPIAN TUBES, OPEN APPROACH (12/26/16) Family History: States: No Known Family Hx - Social History Hx Tobacco Use: No Hx Alcohol Use: No Hx Substance Use: No - Immunization History Hx Tetanus Toxoid Vaccination: No Hx Influenza Vaccination: No Hx Pneumococcal Vaccination: No Review Of Systems Constitutional: Negative for: Fever, Chills Gastrointestinal: Positive for: Nausea. Negative for: Vomiting Genitourinary: Positive for: Dysuria Neurological: Positive for: Dizziness. Negative for: Weakness, Numbness Physical Exam - Physical Exam Appears: Non-toxic, No Acute Distress Skin: Warm, Dry, No Rash Head: Atraumatic, Normacephalic Eye(s): bilateral: Normal Inspection (No nystagmus) Oral Mucosa: Moist Neck: Supple Cardiovascular: Rhythm Regular Respiratory: Normal Breath Sounds, No Rales, No Rhonchi, No Wheezing Gastrointestinal/Abdominal: Soft, No Tenderness, No Guarding, No Rebound Neurological/Psych: Oriented x3, Normal Speech, Normal Cognition ED Course And Treatment - Laboratory Results Result Diagrams: 06/26/18 08:42 06/26/18 08:42 ECG: Interpreted By Me, Viewed By Me ECG Rhythm: Sinus Rhythm Rate From EC (BPM) O2 Sat by Pulse Oximetry: 98 (RA) Pulse Ox Interpretation: Normal Medical Decision Making Medical Decision Making: Assessment: Dizziness Progress: Patient symptoms improved and is okay to be discharge with instructed to follow up with pmd in 1-2 days Disposition Counseled Patient/Family Regarding: Studies Performed, Diagnosis, Need For Followup, Rx Given - Disposition Referrals: Matheus Bolden MD [Staff Provider] - Disposition: HOME/ ROUTINE Disposition Time: 12:52 Condition: IMPROVED Additional Instructions: follow up with neurologist or family doctor within 2 days call to make an appointment take medications as prescribed return to ER if symptoms worsens or progress. Prescriptions: Meclizine [Meclizine*] 25 mg PO TID PRN #15 tab PRN Reason: Dizziness Naproxen [Naprosyn] 500 mg PO BID PRN #16 tab PRN Reason: Pain, Moderate (4-7) Ondansetron ODT [Zofran ODT] 4 mg PO TID PRN #12 odt PRN Reason: Nausea/Vomiting Pseudoephedrine HCl [Sudafed] 30 mg PO TID PRN #15 tablet PRN Reason: Dizziness Instructions: Vertigo (a Type of Dizziness) (DC) Forms: [facility] ([place]an), General Discharge Instructions, Work Excuse - Clinical Impression Clinical Impression: Dizziness - Scribe Statement The provider has reviewed the documentation as recorded by the Heshamibtanesha Villalba All medical record entries made by the Ofelia were at my direction and personally dictated by me. I have reviewed the chart and agree that the record accurately reflects my personal performance of the history, physical exam, medical decision making, and the department course for this patient. I have also personally directed, reviewed, and agree with the discharge instructions and disposition.
[2018-06-26 12:43] VITALS: BP 105/70; PULSE 66; RESP 17
[2018-06-26 12:54] VITALS: O2SAT 98
--- NOTE | 2018-06-27 11:57 | CARD ---
APPROVED REPORT Date of service: 06/26/2018 EKG Measurement Heart [id number] <Conclusion> Normal sinus rhythm Normal ECG
== END 2018-06-26 13:13 | disposition home or self-care (01) ==
LOC: C.ER 07:09
DX: R42 Dizziness and giddiness (principal)
CPT/HCPCS: 80053; 81001; 82948; 83690; 84703; 85025; 87086; 93005; 96361; 96374; 96375; 99285; J1885; J2405; J7030